=== PATIENT | female | born 1975 | race Caucasian/White ===

== ENCOUNTER 2024-01-08 13:11 | Emergency (ER) | payer OTHER, SELFPAY ==
[2024-01-08 13:16] VITALS: BP 124/92
--- NOTE | 2024-01-08 13:16 | ED.GENMED ---
ED Provider Triage
<Shira Flaherty PA-C - Last Filed: 01/08/24 13:22>
-
Patient seen by provider in Triage?: Seen in Triage
Attestation: A medical screening examination has been initiated by a qualified medical provider. Based on the assessment performed at this time, it has been determined that an emergent medical condition may exist and the patient has been informed
that further medical evaluation and possible additional diagnostic testing may be needed.
HPI: [id number] here for a psychiatric evaluation. Here from [facility] with a clinical case manager. She is having paranoia, rapid speech, anxiety, depression that has been unmanageable for the past 3 weeks. Currently on Lexapro. PCP increased dose last
month.
GENERAL: Alert , in no apparent distress
EYE: No visual abnormalities.
NECK: Trachea midline
ENT: No visible abnormalities.
LUNGS: No acute respiratory distress
NEUROLOGICAL: Alert and oriented
SKIN: Skin intact. No visible changes.
MUSCULOSKELETAL: Moving extremities normally
PSYCH: Normal and appropriate interaction.
This is a medical evaluation conducted in person to initiate diagnostic evaluation and provide initial therapeutics. Please see further documentation by the treating clinician.
History of Present Illness
<Shira Flaherty PA-C - Last Filed: 01/08/24 13:22>
General
Chief Complaint: Psychiatric Problem
Time Seen by Provider: 01/08/24 16:45
<Fabio Espinoza DO - Last Filed: 01/08/24 19:22>
General
Source: patient
Exam Limitations: none
History of Present Illness
History of Present Illness:
See MDM
Past History
<Fabio Espinoza DO - Last Filed: 01/08/24 19:22>
Past History
ED Past Medical History: Psychiatric (Anxiety)
ED Past Surgical History: None
Social History
Tobacco: Non-smoker
Alcohol: None
Phy Exam
<Fabio Espinoza DO - Last Filed: 01/08/24 19:22>
Physical Exam
Physical Exam:
See MDM
Course
<Shira Flaherty PA-C - Last Filed: 01/08/24 13:22>
Orders/Labs/Results
Orders:
Orders
01/08/24 13:21
Crisis Consult Urgent
Reason for Consult: paranoia, anxiety
01/08/24 13:31
Complete Blood Count/With Diff Urgent
Comprehensive Metabolic Panel Urgent
TSH Reflex To Free T4 Urgent
01/08/24 16:50
CT Head W/o Iv Contrast Urgent
Comment:
Reason For Exam: headache, altered
Ibuprofen [Motrin] 600 mg PO NOW STA
01/08/24 17:29
ARIPiprazole [Abilify] 5 mg PO NOW STA
Abnormal Lab Results
01/08/24
13:31
Hgb 11.2 L g/dL
(12.0-16.0)
Hct 34.6 L %
(37.0-47.0)
MCV 75.7 L fL
(81.0-99.0)
MCH 24.5 L pg
(27.0-31.0)
MCHC 32.4 L g/dL
(33.0-37.0)
RDW 17.0 H %
(11.5-14.5)
BUN 20 H mg/dl
(7-17)
Glucose 108 H mg/dl
(70-99)
Albumin 5.1 H g/dl
(3.5-5.0)
01/08/24 13:31
01/08/24 13:31
Vital Signs
Initial and Last Documented VS:
Initial Vital Signs
Temp Pulse Resp BP Pulse Ox
99.2 F 86 18 124/92 98
01/08/24 13:16 01/08/24 13:16 01/08/24 13:16 01/08/24 13:16 01/08/24 13:16
Last Documented Vital Signs
Temp Pulse Resp BP Pulse Ox
99.2 F 86 18 124/92 98
01/08/24 13:16 01/08/24 13:16 01/08/24 13:16 01/08/24 13:16 01/08/24 13:16
<Fabio Espinoza, DO - Last Filed: 01/08/24 19:22>
Orders/Labs/Results
Orders:
Orders
01/08/24 13:21
Crisis Consult Urgent
Reason for Consult: paranoia, anxiety
01/08/24 13:31
Complete Blood Count/With Diff Urgent
Comprehensive Metabolic Panel Urgent
TSH Reflex To Free T4 Urgent
01/08/24 16:50
CT Head W/o Iv Contrast Urgent
Comment:
Reason For Exam: headache, altered
Ibuprofen [Motrin] 600 mg PO NOW STA
01/08/24 17:29
ARIPiprazole [Abilify] 5 mg PO NOW STA
Abnormal Lab Results
01/08/24
13:31
Hgb 11.2 L g/dL
(12.0-16.0)
Hct 34.6 L %
(37.0-47.0)
MCV 75.7 L fL
(81.0-99.0)
MCH 24.5 L pg
(27.0-31.0)
MCHC 32.4 L g/dL
(33.0-37.0)
RDW 17.0 H %
(11.5-14.5)
BUN 20 H mg/dl
(7-17)
Glucose 108 H mg/dl
(70-99)
Albumin 5.1 H g/dl
(3.5-5.0)
01/08/24 13:31
01/08/24 13:31
Vital Signs
Initial and Last Documented VS:
Initial Vital Signs
Temp Pulse Resp BP Pulse Ox
99.2 F 86 18 124/92 98
01/08/24 13:16 01/08/24 13:16 01/08/24 13:16 01/08/24 13:16 01/08/24 13:16
Last Documented Vital Signs
Temp Pulse Resp BP Pulse Ox
99.2 F 86 18 124/92 98
01/08/24 13:16 01/08/24 13:16 01/08/24 13:16 01/08/24 13:16 01/08/24 13:16
<Fabio Espinoza, DO - Last Filed: 01/08/24 19:22>
MDM/Problems Addressed
Differential Diagnosis Includes:
HPI and MDM Narrative:
48-year-old female presenting for evaluation of increased paranoia and aan. This has been ongoing for the past several weeks. She presides at a safe house for the past 2 months. She presents with a staff member who is concerned about her mental
health. Patient does acknowledge that she has not been acting right. Complains of headaches and she complains of paranoia and increased depression. She states her doctor recently doubled her Lexapro. She was prescribed Abilify at some point.
Patient is unsure if she was ever diagnosed with depression. She denies drug or alcohol abuse and denies suicidal or homicidal ideations
Will have crisis evaluate. Will obtain basic blood work and will obtain CT head given the headache
Physical exam
General: Well appearing and non-toxic
HEENT: protecting airway
Neck: appears supple
CV: No evidence of cyanosis
Resp: No accessory muscle use
Abd: Non-distended
Extremities: No deformities
Neuro: alert
Psych: Normal affect
Skin: Intact
Problems Addressed including Acute and Chronic Conditions affecting care:
1. Increase ana
Acuity: acute
Prognosis: stable
Details: Potentially patient has undiagnosed bipolar. At this point, she does not appear to be a danger to herself or others. Will have crisis evaluate
Updates
Crisis did evaluate patient. She is safe to go home. She was instructed to call [facility] given that is where she resides. She is comfortable with plan. Given that Abilify was prescribed in the past and worked well for her, will
restart Abilify
Differential Diagnosis (but not limited to): Ana, brain tumor
Testing considered: UDS
Drug therapy (if applicable): OTC meds, please see d/c instruction regarding Rx drugs
Amount and/or Complexity of Data Reviewed
Clinical info obtained from: Patient
External data reviewed: N/A
Labs I independently reviewed (but not limited to): White blood cell count normal
Radiology: The CT scan was personally and independently reviewed. In addition, official CT report reviewed.
Pulse Ox: not hypoxic
EKG independently reviewed: N/A
Cap Sewer: N/A
Critical Care: N/A
Risk of Complication:
Social Determinants of health: Good social support
Discussed with other providers: N/A
Escalation of Care includes Admit/Obs: After being observed in the Emergency Department, pt stable for discharge.
Occasional wrong word or 'sound a like' substitutions may have occurred due to the inherent limitations of voice recognition software. Read the chart carefully and recognize, using context, where substitutions have occurred.
<Fabio Espinoza, DO - Last Filed: 01/08/24 19:22>
*Critical Care Note
Total Time (30-74mins, 75-104mins- exclusive of procedures): Not Applicable
ED Attending Note
<Shira Flaherty PA-C - Last Filed: 01/08/24 13:22>
-
Portions of this chart may have been created with voice recognition software.� Occasional wrong word or��sound alike� substitutions may have occurred due to the inherent limitations of voice recognition software.
Discharge Plan
Departure
Patient Disposition: Home (Routine Discharge)
Date of Disposition: 01/08/24
Time of Disposition: 19:20
Patient with high blood pressure during this ER visit?: No
Discharge Problem:
Depression
Prescriptions:
New
aripiprazole [Abilify] 5 mg tablet
5 mg PO DAILY Qty: 30 0RF
Referrals:
Lupe Persaud MD [Family Provider] -
Activity Restrictions/Additional Instructions:
I am restarting the Abilify. Please follow-up with the [facility] crisis providers as suggested from the crisis provider today.
Please return for any worsening symptoms.
You may return at any time if you have further concerns.
Please follow up with your doctor at the first available appointment, preferably this week.
Thank you for choosing [facility].
Interventions
Interventions:
*Risk Screen - Suicide Last Done: 01/08/24 16:30
*Neglect/Abuse Screening Last Done: 01/08/24 16:30
ED- Fall Risk Assessment Last Done: 01/08/24 17:00
*ED COVID-19 Vaccine History Last Done: 01/08/24 13:16
ED-Psychological Assessment Last Done: 01/08/24 19:11
Discharge Date and Time
Print Language: LATVIAN
[2024-01-08 13:42] LABS: % Basophils 0.7 % (0-2); % Eosinophils 1.5 % (0-6); % Immature Granulocytes 0.1 % (0-0.5); % Lymphocytes 24.3 % (20.5-51.1); % Neutrophils 64.4 % (42.2-75.2); Absolute Basophils 0.1 10^3/uL (0-0.2); Absolute Eosinophils 0.1 10^3/uL (0-0.7); Absolute Lymphocytes 1.6 10^3/uL (1.2-3.4); Absolute Monocytes 0.6 10^3/uL (0.1-0.6); Absolute Neutrophils 4.3 10^3/uL (1.4-6.5); Hematocrit 34.6 % (37.0-47.0); Hemoglobin 11.2 g/dL (12.0-16.0); Mean Corp Hgb Conc. 32.4 g/dL (33.0-37.0); Mean Corpuscular Hgb 24.5 pg (27.0-31.0); Mean Corpuscular Volume 75.7 fL (81.0-99.0); Mean Platelet Volume 9.2 fL (7.4-10.4); Nucleated Red Blood Cells % 0 %; Platelet Count 377 10^3/uL (130-400); Red Blood Cell Count 4.57 10^6/uL (4.20-5.40); White Blood Cell Count 6.7 10^3/uL (4.8-10.8)
[2024-01-08 13:51] LABS: ALT (SGPT) 19 U/L (0-35); AST (SGOT) 22 U/L (14-36); Albumin 5.1 g/dl (3.5-5.0); Alkaline Phosphatase 63 U/L (38-126); Blood Urea Nitrogen 20 mg/dl (7-17); Carbon Dioxide 27 mmol/L (22-30); Chloride 99 mmol/L (98-107); Glucose 108 mg/dl (70-99); Potassium 4.6 mmol/L (3.5-5.1); Sodium 137 mmol/L (135-145); Total Bilirubin 0.3 mg/dl (0.2-1.3); Total Protein 7.8 g/dl (6.3-8.2); eGFR > 60.00
[2024-01-08 14:22] LABS: TSH Reflex To Free T4 0.75 uIU/ml (0.47-4.68)
[2024-01-08] MEDS: MOTRIN 600 MG PO (17:03)
[2024-01-08] MEDS: ABILIFY 5 MG PO (17:34)
[2024-01-08 19:25] VITALS: BP 104/83
== END 2024-01-08 19:26 | disposition home or self-care (01) ==
LOC: EMR 13:11
PROVIDERS: Physician Assistant; EMERGENCY PHYSICIAN Student in an Organized Health Care Education/Training Program; FAMILY PHYSICIAN Family Medicine
DX: F32.A Depression, unspecified (principal); F41.8 Other specified anxiety disorders
CPT/HCPCS: 99284; 70450; 80053; 84443; 85025